=== PATIENT | female | born 1985 | race Caucasian/White ===

== ENCOUNTER 2017-03-03 09:46 | Emergency (ER) | payer SELFPAY ==
--- NOTE | 2017-03-03 10:01 | UC ---
Upper Extremity HPI - HPI Summary HPI Summary: 31 year old female presents with complains of right thumb pain secondary to blunt trauma at work. - History of Current Complaint Chief Complaint: UCUpperExtremity Stated Complaint: THUMB INJURY Time Seen by Provider: 03/03/17 09:58 Hx Obtained From: Patient Onset/Duration: Sudden Onset Severity Currently: Moderate Pain Scale Used: 0-10 Numeric - 5 Character: Sharp Aggravating Factor(s): Movement Alleviating Factor(s): Elevation Associated Signs And Symptoms: Positive: Negative - Allergies/Home Medications Allergies/Adverse Reactions: Allergies Allergy/AdvReac Type Severity Reaction Status Date / Time No Known Allergies Allergy Verified 03/03/17 09:50 PMH/Surg Hx/FS Hx/Imm Hx Previously Healthy: Yes - Surgical History Surgical History: None - Family History Known Family History: Positive: None - Social History Alcohol Use: None Substance Use Type: None Smoking Status (MU): Heavy Every Day Tobacco Smoker Type: Cigarettes Amount Used/How Often: 1/2 PPD Length of Time of Smoking/Using Tobacco: 7+ YEARS Review of Systems Constitutional: Negative Skin: Negative Eyes: Negative ENT: Negative Respiratory: Negative Cardiovascular: Negative Gastrointestinal: Negative Genitourinary: Negative Motor: Negative Neurovascular: Negative Musculoskeletal: Other: - RIGHT THUMB PAIN Neurological: Negative Psychological: Negative All Other Systems Reviewed And Are Negative: Yes Physical Exam Triage Information Reviewed: Yes Vital Signs: Initial Vital Signs Temp 37.1 C 03/03/17 09:51 Pulse 92 03/03/17 09:51 Resp 16 03/03/17 09:51 BP 142/97 03/03/17 09:51 Pulse Ox 100 03/03/17 09:51 Eye Exam: Normal ENT Exam: Normal Dental Exam: Normal Neck exam: Normal Neck: Positive: 1 Respiratory Exam: Normal Cardiovascular Exam: Normal Abdominal Exam: Normal Musculoskeletal: Positive: Other: - RIGHT THUMB CONTUSION Neurological Exam: Normal Psychological Exam: Normal Skin Exam: Normal Upper Extremity Course/Dx - Differential Dx/Diagnosis Provider Diagnoses: RIGHT THUMB SPRAIN Discharge - Discharge Plan Condition: Stable Disposition: HOME Prescriptions: Ibuprofen TAB* [Motrin TAB* 800 MG] 800 mg PO Q8H #30 tab Patient Education Materials: Finger Sprain (ED) Referrals: Piero Monge MD [Medical Doctor] - No Primary Care Phys,NOPCP [Primary Care Provider] -
--- NOTE | 2017-03-03 10:19 | RAD ---
HISTORY: Right thumb pain COMPARISONS: October 18, 2009 VIEWS: 4, Frontal, lateral, and oblique views of the right hand FINDINGS: BONE DENSITY: Normal. BONES: There is no displaced fracture. JOINTS: There is no arthropathy. ALIGNMENT: There is no dislocation. SOFT TISSUES: Unremarkable. OTHER FINDINGS: None. IMPRESSION: NO ACUTE OSSEOUS INJURY. IF SYMPTOMS PERSIST, RECOMMEND REPEAT IMAGING.
[2017-03-03 10:20] VITALS: BP 142/97
== END 2017-03-03 10:28 | disposition home or self-care (01) ==
LOC: UCEAST 09:46
DX: S63.601A Unspecified sprain of right thumb, initial encounter (principal); X58.XXXA Exposure to other specified factors, initial encounter; F17.210 Nicotine dependence, cigarettes, uncomplicated
CPT/HCPCS: 99213; G0463

== ENCOUNTER 2018-08-22 23:04 | Emergency (ER) | payer BC, OTHER ==
[2018-08-23 02:08] LABS: Albumin 4.3 g/dL (3.2-5.2); Albumin/Globulin Ratio 1.6 (1-3); BUN/Creatinine Ratio 11.3 (8-20); C Reactive Protein 1.77 mg/L (<8.01); Calcium 9.5 mg/dL (8.6-10.3); EGFR African American 161.8 (>60); EGFR Non-African American 133.7 (>60); Globulin 2.7 g/dL (2-4); Potassium 3.8 mmol/L (3.5-5.0); Total Bilirubin 0.4 mg/dL (0.2-1.0)
[2018-08-23 02:15] LABS: HCG Pregnancy 1.08 mIU/mL
[2018-08-23] MEDS ORDERED: Iohexol 300* (CONTRAST) 10 ML SDV IV ONE (02:29)
[2018-08-23 02:47] LABS: Urine Appearance Clear; Urine Bacteria Absent (Absent); Urine Bilirubin Negative (Negative); Urine Blood Negative (Negative); Urine Color Yellow; Urine Glucose Negative (Negative); Urine Ketones Negative (Negative); Urine Nitrite Negative (Negative); Urine Protein Negative (Negative); Urine Red Blood Cell Absent (Absent); Urine Specific Gravity 1.011 (1.010-1.030); Urine Squamous Epithelial Cell Present (Absent); Urine Urobilinogen Negative (Negative); Urine White Blood Cell 1+(6-10/hpf) (Absent)
--- NOTE | 2018-08-23 03:06 | ED ---
Abdominal Pain/Female - HPI Summary HPI Summary: Patient complains of possible supraumbilical hernia since 3 years ago. Patient states she gets pain intermittently but pain has been much worse and progressive for the past 2 days. Pain worse to 8/10. Currently 3/10. Denies fever, cough, sore throat, CP, SOB, N/V/D, abdominal pain, change in urine, change in BM, vaginal symptoms. Medical history is hypothyroid. Abdominal surgical history is none. LMP August 03. - History of Current Complaint Chief Complaint: EDGeneral Stated Complaint: ABD PAIN Time Seen by Provider: 08/23/18 00:56 Hx Obtained From: Patient Onset/Duration: Gradual Onset Timing: Constant Severity Initially: Moderate Severity Currently: Moderate Pain Intensity: 7 Pain Scale Used: 0-10 Numeric Location: Umbilical Radiates: No Character: Sharp Aggravating Factor(s): Nothing Alleviating Factor(s): Nothing Associated Signs and Symptoms: Positive: Negative Allergies/Adverse Reactions: Allergies Allergy/AdvReac Type Severity Reaction Status Date / Time No Known Allergies Allergy Verified 08/22/18 23:10 PMH/Surg Hx/FS Hx/Imm Hx Endocrine/Hematology History: Denies: Hx Diabetes, Hx Thyroid Disease Cardiovascular History: Denies: Hx Hypertension Respiratory History: Denies: Hx Asthma, Hx Chronic Obstructive Pulmonary Disease (COPD) GI History: Denies: Hx Ulcer History: Denies: Hx Renal Disease Musculoskeletal History: Denies: Hx Gout Opthamlomology History: Denies: Hx Eye Prosthesis EENT History: Denies: Hx Deafness Neurological History: Denies: Hx Dementia Psychiatric History: Denies: Hx Autism - Immunization History Date of Tetanus Vaccine: unk Date of Influenza Vaccine: none Infectious Disease History: No Infectious Disease History: Denies: Hx Clostridium Difficile, Hx Hepatitis, Hx Human Immunodeficiency Virus (HIV), Hx of Known/Suspected MRSA, Hx Shingles, Hx Tuberculosis, Hx Known/ Suspected VRE, Hx Known/Suspected VRSA, History Other Infectious Disease, Traveled Outside the [place] in Last 30 Days - Family History Known Family History: Positive: None - Social History Alcohol Use: Rare Substance Use Type: Reports: Excessive Caffeine Smoking Status (MU): Heavy Every Day Tobacco Smoker Type: Cigarettes Amount Used/How Often: 1/2 PPD Length of Time of Smoking/Using Tobacco: 7+ YEARS Review of Systems Constitutional: Negative Eyes: Negative ENT: Negative Cardiovascular: Negative Respiratory: Negative Positive: Abdominal Pain Genitourinary: Negative Musculoskeletal: Negative Skin: Negative Neurological: Negative Psychological: Normal All Other Systems Reviewed And Are Negative: Yes Physical Exam - Summary Physical Exam Summary: No evidence of hernia, however pain to palpation supraumbilically. No erythema noted. Abdominal exam otherwise unremarkable. Triage Information Reviewed: Yes Vital Signs On Initial Exam: Initial Vitals Temp Pulse Resp BP Pulse Ox 98.3 F 113 18 152/107 99 08/22/18 23:07 08/22/18 23:07 08/22/18 23:07 08/22/18 23:07 08/22/18 23:07 Vital Signs Reviewed: Yes Appearance: Positive: Well-Appearing Skin: Positive: Warm Head/Face: Positive: Normal Head/Face Inspection Eyes: Positive: Normal Neck: Positive: Supple Respiratory/Lung Sounds: Positive: Clear to Auscultation Cardiovascular: Positive: Normal Abdomen Description: Positive: Other: Musculoskeletal: Positive: Normal Neurological: Positive: Normal Psychiatric: Positive: Normal AVPU Assessment: Alert - Gavin Coma Scale Best Eye Response: 4 - Spontaneous Best Motor Response: 6 - Obeys Commands Best Verbal Response: 5 - Oriented Coma Scale Total: 15 Diagnostics - Vital Signs Vital Signs Temp Pulse Resp BP Pulse Ox 08/22/18 23:07 98.3 F 113 18 152/107 99 - Laboratory Lab Results: Lab Results 08/23/18 08/23/18 08/23/18 Range/Units 01:44 01:44 02:36 Sodium 136 (135-145) mmol/L Potassium 3.8 (3.5-5.0) mmol/L Chloride 108 (101-111) mmol/L Carbon Dioxide 21 L (22-32) mmol/L Anion Gap 7 (2-11) mmol/L BUN 6 (6-24) mg/dL Creatinine 0.53 (0.51-0.95) mg/dL Est GFR ( Amer) 161.8 (>60) Est GFR (Non-Af Amer) 133.7 (>60) BUN/Creatinine Ratio 11.3 (8-20) Glucose 107 H (70-100) mg/dL Lactic Acid 1.1 (0.5-2.0) mmol/L Calcium 9.5 (8.6-10.3) mg/dL Total Bilirubin 0.40 (0.2-1.0) mg/dL AST 14 (13-39) U/L ALT 15 (7-52) U/L Alkaline Phosphatase 83 (34-104) U/L C-Reactive Protein 1.77 (<8.01) mg/L Total Protein 7.0 (6.4-8.9) g/dL Albumin 4.3 (3.2-5.2) g/dL Globulin 2.7 (2-4) g/dL Albumin/Globulin Ratio 1.6 (1-3) Lipase 14 (11.0-82.0) U/L Beta HCG, Quant 1.08 mIU/mL Urine Color Yellow Urine Appearance Clear Urine pH 6.0 (5-9) Ur Specific [place] 1.011 (1.010-1.030) Urine Protein Negative (Negative) Urine Ketones Negative (Negative) Urine Blood Negative (Negative) Urine Nitrate Negative (Negative) Urine Bilirubin Negative (Negative) Urine Urobilinogen Negative (Negative) Ur Leukocyte Esterase 2+ A (Negative) Urine WBC (Auto) 1+(6-10/hpf) A (Absent) Urine RBC (Auto) Absent (Absent) Ur Squamous Epith Cells Present A (Absent) Urine Bacteria Absent (Absent) Urine Glucose Negative (Negative) Result Diagrams: 08/23/18 01:44 Lab Statement: Any lab studies that have been ordered have been reviewed, and results considered in the medical decision making process. Abdominal Pain Fem Course/Dx - Course Course Of Treatment: Patient complains of possible supraumbilical hernia since 3 years ago. Patient states she gets pain intermittently but pain has been much worse and progressive for the past 2 days. Pain worse to 8/10. Currently 3/10. Denies fever, cough, sore throat, CP, SOB, N/V/D, abdominal pain, change in urine, change in BM, vaginal symptoms. Medical history is hypothyroid. Abdominal surgical history is none. LMP August 03. Physical exam:No evidence of hernia, however pain to palpation supraumbilically. No erythema noted. Abdominal exam otherwise unremarkable. Vital signs within normal limits. Labs unremarkable. UA possible UTI, but patient has no urinary symptoms. CT abdomen and pelvis positive for hernia, possible strangulation.Discussed with dr sol who reviewed CT and recommended d/c and f/ up with gen surgery. Patient understands and approves plan. - Diagnoses Provider Diagnoses: Hernia Discharge - Sign-Out/Discharge Documenting (check all that apply): Sign-Out Patient Signing out patient TO: Alexandra Sol Patient Received Moderate/Deep Sedation with Procedure: No - Discharge Plan Condition: Stable Disposition: HOME Patient Education Materials: Umbilical Hernia (ED) Forms: *Work Release Referrals: No Primary Care Phys,NOPCP [Primary Care Provider] - Jaspreet Matute MD [Medical Doctor] - Additional Instructions: Follow-up with Gen. surgery Dr Matute for further evaluation of hernia and lymphangioma. Take ibuprofen for abdominal pain. On abdominal CAT scan Incidental finding of gallbladder stones. Also incidental finding of 8 mm solid round pulmonary nodule in the lateral segment of the right middle lobe. Per guidelines for management of incidental urinary nodules and a low risk patient CT at 6-12 months. 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 - Billing Disposition and Condition Condition: STABLE Disposition: Home
[2018-08-23 04:23] VITALS: BP 139/86
== END 2018-08-23 04:22 | disposition home or self-care (01) ==
LOC: ED 23:04
DX: K46.9 Unspecified abdominal hernia without obstruction or gangrene (principal); R10.9 Unspecified abdominal pain; K80.20 Calculus of gallbladder without cholecystitis without obstruction; F17.210 Nicotine dependence, cigarettes, uncomplicated
CPT/HCPCS: 36415; 74177; 80053; 81003; 81015; 83605; 83690; 84702; 86140; 87086; 99282; Q9967

== ENCOUNTER 2018-11-21 09:21 | Day surgery (SDC) | payer BC ==
[~2018-11-21 09:21] MED LIST: Buffered Lidocaine 1% SYRIN* 1 ML/SYRINGE INTRADERM ONE; Dexamethasone TAB* 4 MG ONE; Dexamethasone TAB* 4 MG PO ONE; DiMENhydriNATE IV* 50 MG/ML VIAL IV PUSH PRN; Famotidine IV* 10 MG/ML 2 ML (20 mg) IV ONE; Famotidine IV* 10 MG/ML 2 ML (20 mg) ONE; Lactated Ringers 1000 ML Bag* 1,000 ML IV SCH; Morphine 4 MG/ML VIAL (1 ml) 4 MG/ML VIAL IV PRN; Naloxone* 0.4 MG/ML 1 ML VIAL IV PRN; Ondansetron INJ* 2 MG/ML VIAL ONE; PROCHLORPERAZINE INJ 5 MG/ML 2 ML VIAL IV PRN; Scopolamine 1.5 mg* PATCH TRANSDERM PRN; ceFAZolin 2 GM PREMIX in ORs 2 GM/50 ML BAG IVPB ONE; oxyCODONE/Acetamin 5/325 MG* TAB PO PRN
[2018-11-21] MEDS ORDERED: fentaNYL* 50 MCG/ML 2 ML VIAL (100 MCG VIAL) ONE ×2 (10:05→12:53)
[2018-11-21] MEDS ORDERED: Midazolam* 1 MG/ML 5 ML VIAL (5 MG) ONE (10:05)
[2018-11-21] MEDS ORDERED: KETAMINE HCL* 50 MG/ML 10 ML VIAL ONE (10:05)
[2018-11-21] MEDS ORDERED: Bupivacaine 0.5% W/EPI SDV* 30 ML VIAL ONE (10:38)
[2018-11-21] MEDS ORDERED: Lidocaine 1% INJ* 10 MG/ML 30 ML SDV ONE (10:38)
[2018-11-21] MEDS ORDERED: Propofol* 10 MG/ML 20 ML BTL ONE (11:03)
[2018-11-21] MEDS ORDERED: Ketorolac INJ* 30 MG/ML 1 ML VIAL ONE (11:03)
[2018-11-21] MEDS ORDERED: Lidocaine 2% PF * 5 ML VIAL ONE (11:03)
--- NOTE | 2018-11-21 12:04 | OP ---
Operative Report - Blank - Operative Report Date of Operation: 11/21/18 Note: Brief Operative Note Preop Dx: ventral hernia Postop Dx: same Procedure: open repair ventral hernia w/ mesh Anesthesia: GET Surgeon: Giovani Desktop Support Associate: ANGE Che; MALATHI Kendrick Fluids: 1000 ml RL EBL: < 20 ml Specimen: none Drains: none Findings: dictated
[2018-11-21] MEDS ORDERED: oxyCODONE/Acetamin 5/325 MG* TAB ONE (12:53)
[2018-11-21] MEDS: fentaNYL* 50 MCG/ML 2 ML VIAL (100 MCG VIAL) IV PRN ×3 (12:54→13:13)
[2018-11-21 12:56] VITALS: BP 120/78
--- NOTE | 2018-11-21 21:16 | OP ---
DATE OF OPERATION: 11/21/18 [facility] DATE OF : 87 SURGEON: Jaspreet Matute MD. FLOOR CASHIER: ANGE Burrell. ANESTHESIOLOGIST: Dr. Gonzalez. ANESTHESIA: General with local. PRE-OP DIAGNOSIS: Ventral hernia. POST-OP DIAGNOSIS: Ventral hernia. OPERATIVE PROCEDURE: Open repair with mesh of a primary ventral hernia. ESTIMATED BLOOD LOSS: Minimal. SPECIMENS: None. WOUND CLASSIFICATION: 1. COMPLICATIONS: None. DRAINS: None. FINDINGS: The patient had a 3 cm fascial defect in the midline approximately 4 cm superior to the umbilicus. This was most likely an epigastric hernia and was repaired with mesh. DESCRIPTION OF PROCEDURE: Written informed consent was obtained, the abdomen was marked with indelible ink and preoperative antibiotics were administered. The patient was taken to the operating room and placed in the supine position. Sequential compression devices and a warming blanket were applied. Anesthesia was administered. The abdomen was prepped and draped in the usual sterile fashion and time-out verification was completed. Initially, 0.25% Marcaine mixed with 1% lidocaine was infiltrated in the midline of the abdomen about 3 cm above the umbilicus. An incision was made and carried down through the subcutaneous fat and here we identified a hernia sac extending up through a fascial defect of about 3 cm in diameter. I did not enter the peritoneal cavity. We were able to separate the hernia sac from the surrounding tissue and developed the extraperitoneal space after we reduced the sac deep to the fascia with a margin of about 3 to 4 cm circumferentially around the hernia defect. With these findings, an 8.[address] mesh was then placed. This was placed in the preperitoneal space and sutured with horizontal mattress 0 Vicryl suture in 4 places around its periphery to secure it into place. The mesh sat nicely without evidence of wrinkling and covered the defect with generous overlap. The [place] fascia was then closed in a transverse orientation with several interrupted 0 Ethibond sutures. Hemostasis was assured. Subcutaneous tissue was closed in several layers of 2-0 Vicryl suture. The skin was approximated with subcuticular 4-0 Vicryl suture. Steri-Strips and a sterile dressing were applied. The patient tolerated the procedure well and was taken to the recovery room in stable condition. [id number]/[facility] #: [id number] [facility]
[2018-11-24] MEDS ORDERED: Scopolamine PATCH Remove* 1 NOTE MISC PATCH OFF ONE (06:00)
== END 2018-11-21 14:36 | disposition home or self-care (01) ==
LOC: OR 09:21
PROVIDERS: ATTEND Surgery
DX: K43.9 Ventral hernia without obstruction or gangrene (principal); Z72.0 Tobacco use
CPT/HCPCS: 81025; A9270-GY; C1781; J0690; J1885; J2250; J2405; J2704; J3010; J8540